=== PATIENT | female | born 1960 | race Two or more races ===

== ENCOUNTER 2022-03-29 11:11 | Emergency (ER) | payer OTHER ==
[~2022-03-29] VITALS: Ht 154.9 cm; Wt 68.0 kg
[2022-03-29] MEDS ORDERED: MEDROLPACK PO (15:56)
== END 2022-03-29 16:05 | disposition home or self-care (01) ==
LOC: ER 11:11
DX: G51.0 Bell's palsy (principal); Z20.828 Contact with and (suspected) exposure to other viral communicable diseases

== ENCOUNTER 2023-05-10 12:01 | Emergency (ER) | payer OTHER ==
[~2023-05-10] VITALS: Ht 154.9 cm; Wt 70.3 kg
[~2023-05-10 12:01] MED LIST: MEDROLPACK PO
[2023-05-10] MEDS ORDERED: SINGULAIR4 M1 (12:07)
[2023-05-10] MEDS ORDERED: MELOXICAM15 MG PO (12:07)
== END 2023-05-10 13:33 | disposition home or self-care (01) ==
LOC: ER 12:02
DX: J37.0 Chronic laryngitis (principal)